=== PATIENT | male | born 1960 | race Caucasian/White ===

== ENCOUNTER 2016-09-24 07:45 | Emergency (ER) | payer BC ==
[2016-09-24 07:52] VITALS: BP 132/98
--- NOTE | 2016-09-24 08:11 | UC ---
Back Pain HPI - HPI Summary HPI Summary: 56 YO MALE WITH LOWER BACK PAIN AND LEFT LEG NUMBNESS AND PAIN (TO KNEE) X 2 WEEKS NO KNOW TRAUMA HX OF SCIATICA LS SPINE FILMS SHOW DDD (2 YRS AGO) CT LS SPINE 2013 SHOWS DDD AND HNP NO RELIEF WITH NSAIDS NO RELIEF WITH 'S OXY'S NO SLEEP X 2 DAYS NO F/C NO HX CA NO BOWEL OR BLADDER DYSFUNCTION - History of Current Complaint Chief Complaint: UCBackPain Stated Complaint: BACK PAIN Time Seen by Provider: 09/24/16 08:04 Hx Obtained From: Patient Onset/Duration: Gradual Onset, Lasting Weeks Timing: Constant Severity Initially: Moderate Severity Currently: Severe Pain Intensity: 10 Pain Scale Used: 0-10 Numeric Back Pain: Is Diffuse - LOWER BACK, Radiates To - LEFT THIGH TO KNEE Character: Aching, Throbbing, Stiffness Aggravating: Movement, Lifting, Bending Alleviating: Nothing Associated Signs And Symptoms: Positive: Tingling - LEFT INNER THIGH Related History: Similar Episode Dx As - HERNIATED DISC - Allergies/Home Medications Allergies/Adverse Reactions: Allergies Allergy/AdvReac Type Severity Reaction Status Date / Time No Known Allergies Allergy Verified 02/26/15 18:58 PMH/Surg Hx/FS Hx/Imm Hx Previously Healthy: Yes - Surgical History Surgical History: None - Family History Known Family History: Positive: Other - MOM HAD CA Negative: Cardiac Disease, Hypertension, Diabetes - Social History Alcohol Use: Daily Alcohol Amount: 1 BEER EVERY OTHER DAY Substance Use Type: None Smoking Status (MU): Never Smoked Tobacco Review of Systems Constitutional: Negative Skin: Negative Eyes: Negative ENT: Negative Respiratory: Negative Cardiovascular: Negative Gastrointestinal: Negative Genitourinary: Negative Motor: Negative Neurovascular: Negative Musculoskeletal: Myalgia Neurological: Negative Psychological: Negative All Other Systems Reviewed And Are Negative: Yes Physical Exam Triage Information Reviewed: Yes Appearance: Well-Appearing, Well-Nourished, Pain Distress Vital Signs: Initial Vital Signs Temp 97.3 F 09/24/16 07:48 Pulse 67 09/24/16 07:48 Resp 18 09/24/16 07:48 BP 132/98 09/24/16 07:48 Pulse Ox 99 09/24/16 07:48 Eyes: Positive: Conjunctiva Clear ENT: Positive: Hearing grossly normal. Negative: Nasal congestion, Nasal drainage, Tonsillar exudate, Trismus, Muffled/hoarse voice Neck: Positive: Supple, Nontender, No Lymphadenopathy Respiratory: Positive: Lungs clear, Normal breath sounds, No respiratory distress, No accessory muscle use Cardiovascular: Positive: RRR, No Murmur Musculoskeletal: Positive: No Edema Neurological: Positive: Alert, Other: - SEE IMAGE Psychological Exam: Normal Skin Exam: Normal Back Pain Course/Dx - Differential Dx/Diagnosis Provider Diagnoses: ACUTE LOW BACK PAIN WITH LEFT SCIATICA Discharge - Discharge Plan Condition: Stable Disposition: HOME Prescriptions: Cyclobenzaprine TAB* [Flexeril TAB*] 5 mg PO TID PRN #21 tab PRN Reason: Spasms HYDROcodone/ACETAMIN 5-325 MG* [[place] 5-325 TAB*] 1 tab PO Q4H PRN #20 tab MDD 5 PRN Reason: Pain Naproxen Sodium [Naproxen Sodium 500 MG TAB] 500 mg PO BID PRN #30 tab PRN Reason: Pain Patient Education Materials: Sciatica (ED) Forms: *Work Release Referrals: [facility] [place] [facility] REFERR[facility] [Outside] - As Soon As Possible (you need to find a windows technical specialist ) Norm Bojorquez MD [Medical Doctor] - As Soon As Possible (neurosurgeon) Lisa Barksdale DO [Doctor of Osteopathy] - If Needed (I suspect a herniated disc but you also have significant muscle spasm and I think you would benefit from osteopathic manipulation. Dr. Barksdale or her partner Dr. Tracy Wolf.) Additional Instructions: PT consult You need to find a primary care doctor to ER for new or worsening symptoms RECHECK HERE IN 5-6 DAYS IF YOU ARE NOT BETTER AND UNABLE TO RETURN TO FULL DUTY Images Front/Back of Body, Lg ([place]): 1 - LEFT PARAPINOUS >RIGHT PARASPINOUS TENDERNESS AND SPASM, DECREASED ROM/ TWISTING TRUNK TO LEFT PAINFUL AND AMARKEDLY LIMITED. ABSENT LEFT KNEE JERK. TOES DOWNGOING, SLR AT 30 DEGREES
[2016-09-24] MEDS ORDERED: Ketorolac INJ* 60 MG/2 ML VIAL IM ONE (08:29)
== END 2016-09-24 09:01 | disposition home or self-care (01) ==
LOC: UCEAST 07:45
DX: M54.42 Lumbago with sciatica, left side (principal)
CPT/HCPCS: 96372; 99212; G0463; J1885

== ENCOUNTER 2016-09-27 13:27 | Emergency (ER) | payer SELFPAY ==
[2016-09-27 13:32] VITALS: BP 129/92
--- NOTE | 2016-09-27 14:31 | UC ---
Back Pain HPI - HPI Summary HPI Summary: L back pain with radiation down the leg still really bad since 09/24. Has had to use hydrocodone every 3-4 hours, taking naproxen at least 4 times per day for even minimal relief. Only slept about 3 hours last night. Has been in pain for 2 weeks. No trouble with bowel or bladder, no numbness, no weakness, or weight loss or night fevers. - History of Current Complaint Chief Complaint: UCGeneralIllness Stated Complaint: BACK PAIN Time Seen by Provider: 09/27/16 14:01 Hx Obtained From: Patient Onset/Duration: Gradual Onset, Lasting Weeks Timing: Constant Severity Initially: Moderate Severity Currently: Moderate Back Pain: Is Discrete @ Character: Dull, Aching, Stiffness Aggravating: Movement Alleviating: Rest Associated Signs And Symptoms: Positive: Tingling. Negative: Weakness, Numbness , Abdominal Pain, Bladder Incontinence, Bowel Incontinence, Weight Loss, Pain with Weight Bearing - Allergies/Home Medications Allergies/Adverse Reactions: Allergies Allergy/AdvReac Type Severity Reaction Status Date / Time No Known Allergies Allergy Verified 02/26/15 18:58 PMH/Surg Hx/FS Hx/Imm Hx Previously Healthy: No - hx DDD in back, radiculopathy - Surgical History Surgical History: None - Family History Known Family History: Positive: Other - MOM HAD CA Negative: Cardiac Disease, Hypertension, Diabetes - Social History Occupation: Employed Full-time Lives: With Family Alcohol Use: Occasionally Alcohol Amount: 1 BEER EVERY OTHER DAY Substance Use Type: None Smoking Status (MU): Never Smoked Tobacco Review of Systems Constitutional: Negative Skin: Negative Eyes: Negative ENT: Negative Respiratory: Negative Cardiovascular: Negative Gastrointestinal: Negative Genitourinary: Negative Motor: Negative Neurovascular: Negative Musculoskeletal: Arthralgia, Decreased ROM Neurological: Paresthesia Psychological: Negative All Other Systems Reviewed And Are Negative: Yes Physical Exam Triage Information Reviewed: Yes Appearance: Well-Appearing, No Pain Distress, Well-Nourished Vital Signs: Initial Vital Signs Temp 98 F 09/27/16 13:29 Pulse 76 09/27/16 13:29 Resp 17 09/27/16 13:29 BP 129/92 09/27/16 13:29 Pulse Ox 99 09/27/16 13:29 Vital Signs Reviewed: Yes Eye Exam: Normal Eyes: Positive: Conjunctiva Clear ENT Exam: Normal ENT: Positive: Normal ENT inspection, Hearing grossly normal, Pharynx normal, TMs normal Dental Exam: Normal Neck exam: Normal Neck: Positive: Supple, Nontender, No Lymphadenopathy Respiratory Exam: Normal Respiratory: Positive: Chest non-tender, Lungs clear, Normal breath sounds, No respiratory distress, No accessory muscle use Cardiovascular Exam: Normal Cardiovascular: Positive: RRR, No Murmur Musculoskeletal Exam: Normal Musculoskeletal: Positive: Strength Intact, ROM Intact Neurological Exam: Other - L patellar DTR absent, R is 2+ Neurological: Positive: Alert, Muscle Tone Normal Psychological Exam: Normal Skin Exam: Normal Back Pain Course/Dx - Differential Dx/Diagnosis Provider Diagnoses: L lumbar radiculopathy Discharge - Discharge Plan Condition: Stable Disposition: HOME Prescriptions: Cyclobenzaprine TAB* [Flexeril 10 MG TAB*] 10 mg PO TID PRN #30 tab PRN Reason: Pain HYDROcodone/ACETAMIN 5-325 MG* [[place] 5-325 TAB*] 1 tab PO Q3H PRN #30 tab MDD 7 PRN Reason: Pain predniSONE TAB* [Deltasone TAB*] 10 mg PO DAILY #45 tab Patient Education Materials: Lumbar Radiculopathy (ED) Forms: *Work Release Referrals: [facility] [place] [facility] REFERRAL [Outside] - 7 Days Additional Instructions: Please arrange to see a primary care provider within 7 days for a recheck. If you have problems with bowel or bladder, develop fever, or have worsening pain, please go to the emergency department.
== END 2016-09-27 14:40 | disposition home or self-care (01) ==
LOC: UCEAST 13:27
DX: M54.16 Radiculopathy, lumbar region (principal)
CPT/HCPCS: 99211; G0463

== ENCOUNTER 2018-08-18 07:26 | Emergency (ER) | payer BC ==
[2018-08-18 07:39] VITALS: BP 137/83
--- NOTE | 2018-08-18 08:11 | UC ---
Respiratory Complaint HPI - HPI Summary HPI Summary: 58 y/o male presents to the urgent care c/o p[t has had a cough for three weeks. He is noticing it more at night and in the morning. And he feels like he is getting headaches and feeling dizzy with coughing. afebrile, no chest pain, pt sometimes feels like he needs to take deep breaths. pt has been congested. - History of Current Complaint Chief Complaint: UCRespiratory Stated Complaint: COUGH Time Seen by Provider: 08/18/18 08:09 Hx Obtained From: Patient Onset/Duration: Gradual Onset, Lasting Weeks - 3 weeks, Still Present, Worse Since - 3 days Timing: Intermittent Episodes Severity Initially: Mild Severity Currently: Moderate Pain Intensity: 2 - WHITING Pain Scale Used: 0-10 Numeric Character: Cough: Productive, Sputum Description: - green Aggravating Factors: Recumbent Position Alleviating Factors: Nothing Associated Signs And Symptoms: Positive: Chills, Wheezing - mild since yesterday , URI, Nasal Congestion, Sinus Discomfort. Negative: Fever - Risk Factors Pulmonary Embolism Risk Factors: Negative Cardiac Risk Factors: Negative Pseudomonas Risk Factors: Negative Tuberculosis Risk Factors: Negative - Allergies/Home Medications Allergies/Adverse Reactions: Allergies Allergy/AdvReac Type Severity Reaction Status Date / Time No Known Allergies Allergy Verified 08/18/18 07:39 PMH/Surg Hx/FS Hx/Imm Hx Previously Healthy: Yes - Pt denies PMHX - Surgical History Surgical History: None - Family History Known Family History: Positive: Other - MOM HAD CA Negative: Cardiac Disease, Hypertension, Diabetes - Social History Alcohol Use: Occasionally Alcohol Amount: 1 BEER EVERY OTHER DAY Substance Use Type: None Smoking Status (MU): Never Smoked Tobacco Physical Exam - Summary Physical Exam Summary: Vital Signs Reviewed: Yes General: well developed, well nourished male sitting in the examining table w/o any apparent distress Eyes: Positive: Conjunctiva Clear - PERRLA, EOMI, fundi grossly normal ENT: Positive: Normal ENT inspection, Hearing grossly normal, Pharynx normal, Nasal congestion - edematous and erythematous nasal mucosa, Nasal drainage - yellowish drainage, TMs normal. Negative: Tonsillar swelling, Tonsillar exudate Neck: Positive: Supple, Nontender, No Lymphadenopathy Respiratory: no orthopnea or dyspnea. Able to speak in full sentences, no retractions or accessory muscle use, no tripod position, stridor, or head bobbing. Positive breath sounds bilaterally. diffuse scattered wheezing and rhonchi on b/L lungs, no crackles or rales. Cardiovascular: Positive: RRR, No Murmur, Pulses Normal, Brisk Capillary Refill Abdomen Description: Positive: Nontender, No Organomegaly, Soft. Negative: CVA Tenderness (R), CVA Tenderness (L) Bowel Sounds: Positive: Present Musculoskeletal Exam: Normal Musculoskeletal: Positive: Strength Intact, ROM Intact, No Edema Neurological Exam: Normal Psychological Exam: Normal Skin Exam: Normal Triage Information Reviewed: Yes Vital Signs: Initial Vital Signs Temp 96.8 F 08/18/18 07:33 Pulse 62 08/18/18 07:33 Resp 18 08/18/18 07:33 BP 137/83 08/18/18 07:33 Pulse Ox 98 08/18/18 07:33 Respiratory Course/Dx - Differential Dx/Diagnosis Differential Diagnosis/HQI/PQRI: Asthma, Bronchitis, Exacerbation Of COPD, Lower Resp Infection, Sinusitis, Other - pneumonia Provider Diagnosis: Acute bronchitis, Wheezing Discharge - Sign-Out/Discharge Documenting (check all that apply): Patient Departure - d/C home All imaging exams completed and their final reports reviewed: Yes - Discharge Plan Condition: Stable Disposition: HOME Prescriptions: Albuterol HFA INHALER* [Ventolin HFA Inhaler*] 1 - 2 puff INH Q6H PRN #1 mdi PRN Reason: Wheezing Benzonatate CAP* [Tessalon 100 MG CAP*] 100 mg PO TID PRN #21 cap PRN Reason: Cough DOXYcycline CAP(*) [DOXYcycline 100MG CAP(*)] 100 mg PO BID #20 cap Patient Education Materials: Acute Bronchitis (ED) Forms: *Work Release Referrals: [facility] [place] [facility] REFERR[facility] [Outside] - 3 Days Additional Instructions: 1-Please take full course of antibiotic to avoid resistance. Take yogurt w/ probiotics or Culturelle PO to protect your GI system. 2-Take Tessalon PO tabs as directed and use the albuterol inhaler to alleviate cough. Increase fluid intake, rest and eat well. 3- If symptoms do not improve or worsen or your develop SOB with fever and severe wheezing please go immediately to the ER further evaluation and treatment. 4- F/u with your PCP in 3 days if not improvement of symptoms for further management on your Asthma - Billing Disposition and Condition Condition: STABLE Disposition: Home
[2018-08-18] MEDS ORDERED: Albuterol/Ipratropium NEB.SOL* Albuterol 2.5 MG/Ipratropium 0.5 MG 3 ML INH ONE (08:20)
[2018-08-18] MEDS ORDERED: Ibuprofen TAB* 400 MG PO ONE (08:37)
== END 2018-08-18 09:08 | disposition home or self-care (01) ==
LOC: UCEAST 07:26
DX: J20.9 Acute bronchitis, unspecified (principal)
CPT/HCPCS: 71046; 99212; A9270-GY; G0463

== ENCOUNTER 2019-07-07 09:35 | Emergency (ER) | payer BC ==
[2019-07-07 09:54] VITALS: BP 169/101
[2019-07-07] MEDS ORDERED: HYDROcodone/ACETAMIN 5-325 MG* 1 TAB PO ONE (10:11)
--- NOTE | 2019-07-07 10:17 | UC ---
Back Pain HPI - HPI Summary HPI Summary: 58-year-old male comes in with chief complaint of left sciatic pain. This started 2 days ago. No known trauma. Patient's had similar pain in the past. Pain goes from the low back down the left buttock into the left upper leg into the left lower leg. He has increased pain with any kind of range of motion. Pain is less at rest. He has been putting ice on his low back which does help some with the pain. Has also been using nonsteroidal anti-inflammatories which helped minimally. Patient reports normal bowel or bladder function. Denies any numbness. When the pain gets worse his left leg does feel like it won't support him. When the pain is less he does not perceive any weakness. Patient' s had prior episodes of the same type of pain and he's been treated with ice, anti-inflammatories, [place], Flexeril and steroids. - History of Current Complaint Chief Complaint: UCBackPain Stated Complaint: LEG PAIN Time Seen by Provider: 07/07/19 09:52 Pain Intensity: 8 - Allergies/Home Medications Allergies/Adverse Reactions: Allergies Allergy/AdvReac Type Severity Reaction Status Date / Time No Known Allergies Allergy Verified 07/07/19 09:41 Home Medications: Home Medications Cyclobenzaprine TAB* [Flexeril 10 MG TAB*] 10 mg PO TID PRN #15 tab MDD 3 [Rx] HYDROcodone/ACETAMIN 5-325 MG* [[place] 5-325 TAB*] 1 tab PO Q4H PRN #30 tab MDD 6 07/07/19 [Rx] Ibuprofen TAB* [Motrin TAB* 800 MG] 800 mg PO Q8H PRN 07/07/19 [History Confirmed 07/07/19] Naproxen [Naproxen 500 mg tab] 500 mg PO BID #30 tablet 07/07/19 [Rx] predniSONE 20 mg TAB [Deltasone 20 MG TAB*] 40 mg PO DAILY #10 tab 07/07/19 [Rx] PMH/Surg Hx/FS Hx/Imm Hx Previously Healthy: Yes - Surgical History Surgical History: None - Family History Known Family History: Positive: Other - MOM HAD CA Negative: Cardiac Disease, Hypertension, Diabetes - Social History Alcohol Use: Occasionally Alcohol Amount: 1 BEER EVERY OTHER DAY Substance Use Type: None Smoking Status (MU): Never Smoked Tobacco Review of Systems All Other Systems Reviewed And Are Negative: Yes Constitutional: Positive: Negative Skin: Positive: Negative Eyes: Positive: Negative ENT: Positive: Negative Respiratory: Positive: Negative Cardiovascular: Positive: Negative Genitourinary: Positive: Negative Motor: Positive: Other - SEE HPI Neurovascular: Positive: Negative Musculoskeletal: Positive: Other: - SEE HPI Neurological/Mental Status: Positive: Negative Psychological: Positive: Negative Is Patient Immunocompromised?: No Physical Exam Triage Information Reviewed: Yes Appearance: Well-Appearing, Well-Nourished, Pain Distress - MILD WITH ROM Vital Signs: Initial Vital Signs Temp 98.2 F 07/07/19 09:42 Pulse 78 07/07/19 09:42 Resp 18 07/07/19 09:42 BP 169/101 07/07/19 09:42 Pulse Ox 96 07/07/19 09:42 Vital Signs Reviewed: Yes Eye Exam: Normal Eyes: Positive: Conjunctiva Clear Neck: Positive: Supple Respiratory: Positive: No respiratory distress Musculoskeletal: Positive: Other: - Tender to palpation mid low back primarily into the left sciatic distribution going into the left buttock. Legs have normal sensation. The range of motion causes increased pain. No loss of strength noted on examination however patient does hesitate to 2 the pain. Neurological: Positive: Alert Psychological: Positive: Age Appropriate Behavior Skin Exam: Normal Back Pain Course/Dx - Course Course Of Treatment: No neurologic deficit by history or examination. No difficulty controlling urine or bowels. Patient started been using cold and heat and anti- inflammatories and rest. Recommended stopping the heat continuing the cold and anti-inflammatories. Also recommended using [id number] lidocaine patches. In the past patient has used hydrocodone, Flexeril and steroids to get better. I prescribed all of these to be used as directed as needed. If not improved patient will follow up either with his primary care doctor or sports medicine. I discussed with the patient if he had any neurologic deficits he needs to get reevaluated again right away to avoid long-term neurologic deficit. - Differential Dx/Diagnosis Provider Diagnosis: Low back pain with left-sided sciatica Discharge ED - Sign-Out/Discharge Documenting (check all that apply): Patient Departure All imaging exams completed and their final reports reviewed: No Studies - Discharge Plan Condition: Stable Disposition: HOME Prescriptions: Cyclobenzaprine TAB* [Flexeril 10 MG TAB*] 10 mg PO TID PRN #15 tab MDD 3 PRN Reason: Pain - Moderate HYDROcodone/ACETAMIN 5-325 MG* [[place] 5-325 TAB*] 1 tab PO Q4H PRN #30 tab MDD 6 PRN Reason: Pain - Severe Naproxen [Naproxen 500 mg tab] 500 mg PO BID #30 tablet predniSONE 20 mg TAB [Deltasone 20 MG TAB*] 40 mg PO DAILY #10 tab Patient Education Materials: Sciatica (ED), Acute Low Back Pain (ED), Lower Back Exercises (ED) Forms: *Work Release Referrals: [facility] – [place] [facility] REFERRAL [Outside] Sports Medicine [facility] [Provider Group] Additional Instructions: FOLLOW UP WITH YOUR PRIMARY CARE DOCTOR OR SPORTS MEDICINE IF NOT COMPLETELY IMPROVED. USE OVER THE COUNTER LIDOCAINE PATCHES. GET REEVALUATED IF NOT IMPROVED OR WORSE; PAIN, WEAKNESS, NUMBNESS, LOSS OF CONTROL OF BOWEL OR BLADDER OR ANY QUESTIONS OR CONCERNS. - Billing Disposition and Condition Condition: STABLE Disposition: Home
== END 2019-07-07 10:48 | disposition home or self-care (01) ==
LOC: UCEAST 09:35
DX: M54.42 Lumbago with sciatica, left side (principal)
CPT/HCPCS: 99212; G0463; J7512

== ENCOUNTER 2019-07-08 06:31 | Emergency (ER) | payer BC ==
[2019-07-08] MEDS ORDERED: Diazepam TAB(*) 5 MG PO ONE (06:54)
--- NOTE | 2019-07-08 07:00 | ED ---
Back Pain - HPI Summary HPI Summary: 58 year old male presents to the ED today with a CC of 10/10 low back pain with radiculopathy down the left leg. Pt was seen at urgent care yesterday for this issue and was given, hydrocodone, flexaril, steroids and NSAIDs. Pt has been taking these medications however he is unable to tolerate the pain. Pt denies hx of trauma and has been symptomatic for 3 days. No deformity,edema, erythema. Pt has difficulty with ambulation due to pain but denies fever or bladder or bowel disfunction. Pt denies history of osteoporosis, cancer. Pt is otherwise well and denies fever, chest pain, abd pain, SOB, pain with urination, neurological deficit. - History of Current Complaint Chief Complaint: EDBackInjuryPain Stated Complaint: LEG PAIN PER PT Time Seen by Provider: 07/08/19 06:43 Hx Obtained From: Patient Onset/Duration: Gradual Onset Onset/Duration: Started Days Ago Timing: Constant Back Pain Location: Is Discrete @ - low back Severity Initially: Moderate Severity Currently: Moderate Pain Intensity: 5 Pain Scale Used: 0-10 Numeric Character: Aching, Throbbing, Burning Aggravating Symptom(s): Lifting, Bending, Walking Alleviating Symptom(s): Rest Associated Signs And Symptoms: Positive: Tingling, Pain with Weight Bearing. Negative: Swelling, Redness, Bruising, Fever, Weakness, Abdominal Pain, Flank Pain, Bladder Incontinence, Bowel Incontinence, Weight Loss - Allergies/Home Medications Allergies/Adverse Reactions: Allergies Allergy/AdvReac Type Severity Reaction Status Date / Time No Known Allergies Allergy Verified 07/08/19 06:35 Home Medications: Home Medications Cyclobenzaprine TAB* [Flexeril 10 MG TAB*] 10 mg PO TID PRN #15 tab MDD 3 [Rx Confirmed 07/08/19] HYDROcodone/ACETAMIN 5-325 MG* [[place] 5-325 TAB*] 1 tab PO Q4H PRN #30 tab MDD 6 07/07/19 [Rx Confirmed 07/08/19] Ibuprofen TAB* [Motrin TAB* 800 MG] 800 mg PO Q8H PRN 07/07/19 [History Confirmed 07/08/19] Naproxen [Naproxen 500 mg tab] 500 mg PO BID #30 tablet 07/07/19 [Rx Confirmed 07/08/19] predniSONE 20 mg TAB [Deltasone 20 MG TAB*] 40 mg PO DAILY #10 tab 07/07/19 [Rx Confirmed 07/08/19] Diazepam TAB(*) [Valium TAB(*)] 10 mg PO Q8H PRN #9 tab MDD 3 07/08/19 [Rx] PMH/Surg Hx/FS Hx/Imm Hx Endocrine/Hematology History: Denies: Hx Diabetes, Hx Thyroid Disease Cardiovascular History: Denies: Hx Hypertension Respiratory History: Denies: Hx Asthma, Hx Chronic Obstructive Pulmonary Disease (COPD) GI History: Denies: Hx Ulcer Musculoskeletal History: Denies: Hx Scoliosis Neurological History: Denies: Hx Headaches Infectious Disease History: No Infectious Disease History: Denies: Hx Clostridium Difficile, Hx Hepatitis, Hx Human Immunodeficiency Virus (HIV), Hx of Known/Suspected MRSA, Hx Shingles, Hx Tuberculosis, Hx Known/ Suspected VRE, Hx Known/Suspected VRSA, History Other Infectious Disease, Traveled Outside the [place] in Last 30 Days - Family History Known Family History: Positive: Other - MOM HAD CA Negative: Cardiac Disease, Hypertension, Diabetes - Social History Alcohol Use: Occasionally Alcohol Amount: 1 beer 3x/week Substance Use Type: Reports: None Smoking Status (MU): Never Smoked Tobacco Review of Systems Constitutional: Negative Eyes: Negative ENT: Negative Cardiovascular: Negative Respiratory: Negative Gastrointestinal: Negative Genitourinary: Negative Positive: Arthralgia, Myalgia, Decreased ROM. Negative: Edema Skin: Negative Neurological/Mental Status: Negative Positive: Anxious All Other Systems Reviewed And Are Negative: Yes Physical Exam - Summary Physical Exam Summary: Pt appears to be in pain distress with ambulation. No ecchymosis, erythema, edema. No pain with palpation of the mid line spine. Pt has decreased ROM of the lumbar spine due to pain. Pt has subjective radiculopahy of the left leg. Pt has significant difficulty ambulating due to pain. Triage Information Reviewed: Yes Vital Signs On Initial Exam: Initial Vitals Temp Pulse Resp BP Pulse Ox 98.3 F 106 20 163/100 95 07/08/19 06:33 07/08/19 06:33 07/08/19 06:33 07/08/19 06:33 07/08/19 06:33 Vital Signs Reviewed: Yes Appearance: Positive: Well-Appearing, Well-Nourished, Pain Distress Skin: Positive: Warm, Skin Color Reflects Adequate Perfusion Eyes: Positive: EOMI, LINDA ENT: Positive: Hearing grossly normal Respiratory/Lung Sounds: Positive: Clear to Auscultation, Breath Sounds Present Cardiovascular: Positive: RRR, S1, S2 Abdomen Description: Positive: Nontender, Soft Bowel Sounds: Positive: Present Neurological: Positive: Sensory/Motor Intact, Alert, Oriented to Person Place, Time, Facial Symmetry, Speech Normal. Negative: Normal Gait - antalgic gait Psychiatric: Positive: Anxious AVPU Assessment: Alert Procedures - Sedation Patient Received Moderate/Deep Sedation with Procedure: No Diagnostics - Vital Signs Vital Signs Temp Pulse Resp BP Pulse Ox 07/08/19 06:33 98.3 F 106 20 163/100 95 - Laboratory Lab Statement: Any lab studies that have been ordered have been reviewed, and results considered in the medical decision making process. Back Pain Course/Dx - Course Course Of Treatment: Pt was evaluated in the ED for low back pain. Vitals noted and stable. No evidence of fever. Cauda equina, epidural abscess was considered in the differential for this patient however physical exam history was consistent with mechanical back pain. Patient had taken hydrocodone 5 mg, Flexeril, steroids, NSAIDs prior to arrival. Patient was given 10 mg Valium low back pain. Due to pain patient was unable to tolerate CT imaging. Patient was given IV morphine and Zofran. Due to exquisite pain patient had CT imaging of the lumbar spine which showed degenerative disc disease and osteoarthritis. There is no foraminal narrowing noted to L3 to S1. No evidence of osseous central canal stenosis. Patient symptoms appeared to be due to mechanical back pain. Patient was ambulated in the emergency department with an antalgic gait and mild difficulty. Patient believed his pain control was adequate in the emergency department and he would be able to function at home with the addition of Valium to his outpatient prescriptions. Patient given short dose of Valium and educated to the risk of taking Valium with opiates. Patient discharged with outpatient follow-up. - Diagnoses Differential Diagnosis/HQI/PQRI: Positive: Arthritis, Cauda Equina Syndrome, Compressive Cord Syndrome, Epidural Abscess, Fracture, Herniated Disc, Strain, Sprain Provider Diagnoses: Low back pain - Critical Care Time Critical Care Statement: Critical care time is provided exclusive of any time spent performing procedures. Discharge ED - Sign-Out/Discharge Documenting (check all that apply): Patient Departure - Discharge Plan Condition: Stable Disposition: HOME Prescriptions: Diazepam TAB(*) [Valium TAB(*)] 10 mg PO Q8H PRN #9 tab MDD 3 PRN Reason: Pain - Severe Patient Education Materials: Back Pain (ED) Referrals: [facility] [Outside] - 3 Days No Primary Care Phys,NOPCP [Primary Care Provider] - Additional Instructions: You were seen in the emergency department today for back pain. Please follow up with your primary care physician in 3 days for further evaluation and management of your injury. Please take for your previously prescribed medications as directed. Please also take Valium 10 mg every 8 hours as needed. Please use caution when using opiates and Valium together as they cause respiratory depression. Please do not drive while using these medications. Most people with an episode of low back pain do not have a serious medical problem, and can try simple treatments such as: Staying active The best thing you can do is to stay as active as possible. People with low back pain recover faster if they stay active. If your pain is severe, you might need to rest for a day or 2. But it's important to get back to walking and moving as soon as possible. While you should avoid heavy lifting and sports while your back hurts, try to keep doing your normal daily activities. Heat Some people find that it helps to use a heating pad or heated wrap. Be careful to avoid high heat settings to prevent skin nieves. Spinal manipulation This is when a chiropractor, physical therapist, or other professional moves or "adjusts" the joints of your back. If you want to try this, talk to your doctor or nurse first. Acupuncture This is when someone who knows traditional [place] medicine inserts tiny needles into your body to block pain signals. Massage While back pain usually goes away within a few weeks, some people do continue to have pain for longer. In this case, additional treatments might include: Self care This involves being aware of your pain. While you should rest when you need to, it's important to stay active as much as you can. Things like applying heat and doing gentle stretches can help you feel better, too. Physical therapy A physical therapist is an exercise expert who can teach you stretches and movements to help strengthen your muscles. The goal is to relieve pain but also help you get back to your normal activities. Exercises you can try include walking, swimming, or using an exercise bike. Some people also find that Elias Chi or yoga can help with their back pain. Finding activities you enjoy can help you stay active. Reducing stress Some people find that it helps to try something called "mindfulness-based stress reduction." This involves going to a group program to practice relaxation and meditation. If your back pain is making you feel anxious or depressed, talk to your doctor or nurse. There are other treatments that can help with these problems. Only a small number of people end up needing surgery to treat back pain. Please return to this emergency Department immediately should you develop any new or worsening symptoms. - Billing Disposition and Condition Condition: STABLE Disposition: Home
[2019-07-08] MEDS ORDERED: Ondansetron INJ* 2 MG/ML VIAL IV ONE (08:23)
[2019-07-08] MEDS ORDERED: Morphine 4 MG/ML VIAL (1 ml) 4 MG/ML VIAL IV ONE (08:23)
[2019-07-08 12:21] VITALS: BP 132/84
== END 2019-07-08 12:31 | disposition home or self-care (01) ==
LOC: ED 06:31
DX: M51.34 Other intervertebral disc degeneration, thoracic region (principal); M19.90 Unspecified osteoarthritis, unspecified site; M54.5 Low back pain; F41.9 Anxiety disorder, unspecified; M54.10 Radiculopathy, site unspecified; Z79.52 Long term (current) use of systemic steroids; Z79.899 Other long term (current) drug therapy
CPT/HCPCS: 72131; 96374; 96375; 99283; A9270-GY; J2270; J2405

== ENCOUNTER 2019-07-12 15:15 | Emergency (ER) | payer BC ==
[2019-07-12 15:28] VITALS: BP 169/98
--- NOTE | 2019-07-12 15:47 | UC ---
Back Pain HPI - HPI Summary HPI Summary: PATIENT REPORTS HE HAS HAD CHRONIC LOW BACK PAIN/SCIATICA FOR OVER 15 YEARS. ABOUT ONE WEEK AGO PAIN STARTED ACTING UP. STATES IT IS IN HIS LOW BACK AND GOES DOWN HIS LEFT LEG. HE DENIES ANY ACUTE TRAUMA OR INJURY. CAME HERE TO THE URGENT CARE 5 DAYS AGO AND WAS TREATED WITH FLEXERIL, NAPROXEN, PREDNISONE AND HYDROCODONE. HE STATES THIS DID NOT HELP SO HE WENT TO THE ER THE NEXT DAY AND WAS GIVEN DIAZEPAM. PATIENT STATES THE DIAZEPAM WORKED REALLY WELL AND IS HERE REQUESTING REFILLS. HE DENIES ANY SADDLE ANESTHESIA. NO LOSS OF BOWEL OR BLADDER CONTROL. NO NUMBNESS OR TINGLING. - History of Current Complaint Chief Complaint: UCBackPain Stated Complaint: BACK PAIN Time Seen by Provider: 07/12/19 15:16 Hx Obtained From: Patient Onset/Duration: Sudden Onset, Lasting Days, Still Present Timing: Constant Severity Initially: Moderate Severity Currently: Moderate Pain Intensity: 4 Pain Scale Used: 0-10 Numeric Back Pain: Is Discrete @ - LOW BACK Character: Sharp Aggravating Factor(s): Movement Alleviating Factor(s): Other - DIAZEPAM Associated Signs And Symptoms: Negative: Weakness, Numbness, Tingling, Bladder Incontinence, Bowel Incontinence - Allergies/Home Medications Allergies/Adverse Reactions: Allergies Allergy/AdvReac Type Severity Reaction Status Date / Time No Known Allergies Allergy Verified 07/12/19 15:23 Home Medications: Home Medications Cyclobenzaprine TAB* [Flexeril 10 MG TAB*] 10 mg PO TID PRN #15 tab MDD 3 [Rx Confirmed 07/12/19] HYDROcodone/ACETAMIN 5-325 MG* [[place] 5-325 TAB*] 1 tab PO Q4H PRN #30 tab MDD 6 07/07/19 [Rx Confirmed 07/12/19] Ibuprofen TAB* [Motrin TAB* 800 MG] 800 mg PO Q8H PRN 07/07/19 [History Confirmed 07/12/19] Naproxen [Naproxen 500 mg tab] 500 mg PO BID #30 tablet 07/07/19 [Rx Confirmed 07/12/19] predniSONE 20 mg TAB [Deltasone 20 MG TAB*] 40 mg PO DAILY #10 tab 07/07/19 [Rx Confirmed 07/12/19] Diazepam TAB(*) [Valium TAB(*)] 10 mg PO Q8H PRN #9 tab MDD 3 07/08/19 [Rx Confirmed 07/12/19] PMH/Surg Hx/FS Hx/Imm Hx Cardiovascular History: Hypertension - Surgical History Surgical History: None - Family History Known Family History: Positive: Other - MOM HAD [place] Negative: Cardiac Disease, Hypertension, Diabetes - Social History Alcohol Use: Rare Alcohol Amount: 1 beer 3x/week Substance Use Type: None Smoking Status (MU): Never Smoked Tobacco Review of Systems All Other Systems Reviewed And Are Negative: Yes Constitutional: Positive: Negative Skin: Positive: Negative Respiratory: Positive: Negative Cardiovascular: Positive: Negative Gastrointestinal: Positive: Negative Genitourinary: Positive: Negative Musculoskeletal: Positive: Decreased ROM, Myalgia Physical Exam Triage Information Reviewed: Yes Appearance: Well-Appearing, No Pain Distress, Well-Nourished Vital Signs: Initial Vital Signs Temp 97.7 F 07/12/19 15:27 Pulse 74 07/12/19 15:27 Resp 16 07/12/19 15:27 BP 169/98 07/12/19 15:27 Pulse Ox 99 07/12/19 15:27 Vital Signs Reviewed: Yes Eyes: Positive: Conjunctiva Clear ENT: Positive: Hearing grossly normal Neck: Positive: Supple Respiratory: Positive: No respiratory distress, No accessory muscle use Cardiovascular: Positive: Pulses Normal Musculoskeletal: Positive: No Edema Neurological: Positive: Alert Psychological: Positive: Age Appropriate Behavior Skin: Negative: Rashes Back Pain Course/Dx - Course Course Of Treatment: THIS IS THE PATIENTS 3RD VISIT IN 7 DAYS FOR LOW BACK PAIN. HE HAS NO RED FLAG SYMPTOMS AND STATES THE PAIN IS OVERALL BETTER BUT HE IS HERE REQUESTING A REFILL OF THE DIAZEPAM HE WAS GIVEN AT THE ER. STATES HE HAS HAD THIS BACK PAIN FOR OVER [address] SCAN DONE IN THE ER 4 DAYS AGO SHOWED SOME MODERATE NEUROFORAMINAL NARROWING AND DDD BUT NO CENTRAL CANAL STENOSIS. I DISCUSSED WITH THE PATIENT THAT THE URGENT CARE AND ER ARE NOT APPROPRIATE VENUES FOR REFILLS OF PAIN MEDICATIONS/CONTROLLED SUBSTANCES. HE WAS GIVEN CONTACT INFORMATION FOR ORTHOPEDIC/SPORTS MEDICINE, [facility] AND THE PHYSICIAN REFERRAL CENTER. PATIENT MUST ESTABLISH WITH ROUTINE MEDICAL CARE. PHYSICAL THERAPY REFERRAL PROVIDED. - Differential Dx/Diagnosis Provider Diagnosis: Acute exacerbation of chronic low back pain Discharge ED - Sign-Out/Discharge Documenting (check all that apply): Patient Departure All imaging exams completed and their final reports reviewed: No Studies - Discharge Plan Condition: Stable Disposition: HOME Patient Education Materials: Sciatica (ED), Chronic Back Pain (DC) Referrals: [facility] [Outside] - As Soon As Possible [facility] [Outside] - As Soon As Possible Additional Instructions: YOU MUST FOLLOW-UP WITH A PCP OR ORTHOPEDICS FOR FURTHER EVALUATION OF YOUR BACK PAIN. BE SURE TO GO THROUGH SLOW RANGE OF MOTION AND STRETCHING EXERCISES DAILY YOU ARE ABLE TO PREVENT STIFFENING UP AND MAKING THE DISCOMFORT WORSE. GO TO THE ED WITHOUT FAIL IF YOU DEVELOP WORSENING NUMBNESS/TINGLING IN YOUR LEGS, NUMBNESS IN THE GENITAL REGION, LOSS OF BOWEL/BLADDER CONTROL, INTOLERABLE PAIN OR ANY OTHER CONCERNING SYMPTOMS. CALL THE NUMBER BELOW FOR ASSISTANCE IN ESTABLISHING WITH A PCP An additional resource available to assist in finding the appropriate physician for your health care needs is the [facility] ([facility]). You may contact them by calling [phone]. - Billing Disposition and Condition Condition: STABLE Disposition: Home
== END 2019-07-12 15:53 | disposition home or self-care (01) ==
LOC: UCEAST 15:15
DX: M54.5 Low back pain (principal); I10 Essential (primary) hypertension
CPT/HCPCS: 99201; G0463